=== PATIENT | female | born 2000 | race Caucasian/White ===

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

== ENCOUNTER 2018-03-05 19:02 | Emergency (ER) | payer MEDICAID | END 2018-03-05 20:14 | disposition home or self-care (01) | LOC: E/R 19:02 | DX: S70.01XA Contusion of right hip, initial encounter (principal); W22.8XXA Striking against or struck by other objects, initial encounter; Y92.9 Unspecified place or not applicable | CPT/HCPCS: 99283; Z7502 ==